=== PATIENT | female | born 1980 | race Caucasian/White ===

== ENCOUNTER 2017-08-29 18:19 | Emergency (ER) | payer OTHER, SELFPAY ==
[2017-08-29 19:08] VITALS: BP 128/80; PULSE 80; RESP 20; TEMP 36.9; O2SAT 100; BMI 32.8
--- NOTE | 2017-08-29 19:18 | ED.LOWEXIN ---
HPI - Extremity Injury (Lower) <JODIE Núñez - Last Filed: 08/29/17 22:05> General Chief Complaint: Extremity Injury, Lower Stated Complaint: left knee pain x2 days/fell Time Seen by Provider: 08/29/17 18:57 History of Present Illness HPI Narrative: 37-year-old female here for complaint of pain into her left knee. Patient states she had ground level fall yesterday when she slipped on the edge of a side walk causing her to land on her anterior left knee. She has a few abrasions to her lower extremities otherwise she states she has no other injuries. Increased pain with ambulation and weight-bearing to the left knee. No head injury no loss of consciousness. She states that her last tetanus was a long time ago probably over 10 years. Related Data Home Medications Medication Instructions Recorded Confirmed Multi Vitamin 08/29/17 Allergies Allergy/AdvReac Type Severity Reaction Status Date / Time amoxicillin AdvReac Diarrhea Verified 08/29/17 19:15 Review of Systems <JODIE Núñez Last Filed: 08/29/17 22:05> Constitutional Denies chills, Denies fever(s), Denies lethargy and Denies weakness Eyes Denies change in vision, Denies eye discharge, Denies irritation and Denies loss of vision ENT Ears, Nose, Mouth, and Throat: Denies change in voice, Denies neck pain and Denies sore throat Cardiovascular Denies chest pain, Denies irregular heart rhythm, Denies lightheadedness, Denies palpitations, Denies dyspnea, Denies dyspnea on exertion and Denies orthopnea Respiratory Denies cough, Denies dyspnea, Denies dyspnea on exertion and Denies wheezing Gastrointestinal Gastrointestinal: Denies abdominal pain, Denies change in bowel habits, Denies diarrhea, Denies nausea and Denies vomiting Genitourinary Denies hematuria, Denies flank pain, Denies urinary incontinence and Denies urinary urgency Musculoskeletal Denies neck pain Comments: Left knee pain Integumentary/Breasts Denies pruritus, Denies erythema, Denies rash and Denies wounds Neurologic Denies confusion, Denies loss of vision and Denies weakness Psychiatric Denies anxiety, Denies confusion, Denies depression, Denies homicidal ideation and Denies suicidal ideation Endocrine Denies palpitations Allergic/Immunologic Denies wheezing Exam <JODIE Núñez - Last Filed: 08/29/17 22:05> Initial Vital Signs Initial Vital Signs: Vital Signs Temperature 98.5 F 08/29/17 19:08 Pulse Rate 80 08/29/17 19:08 Respiratory Rate 20 08/29/17 19:08 Blood Pressure 128/80 H 08/29/17 19:08 Pulse Oximetry 100 08/29/17 19:08 Const General: cooperative and well developed Nutritional Appearance: well nourished Orientation: alert, awake and oriented x3 HENMT Mouth: oral mucosae normal, oropharynx normal and moist mucous membranes Eyes Conjunctivae: conjunctivae normal Sclera: sclerae normal Pupils: PERRL EOM: EOM intact bilaterally Resp Effort & Inspection: normal respiratory effort, able to speak in complete sentences, no respiratory distress and no use of accessory muscles Auscultation: clear to auscultation bilaterally, no rales, no rhonchi and no wheezes Cardio Pulses: normal peripheral pulses Skin General: no rashes or lesions noted, No jaundice and No petechiae Extrem Other: Right knee with slight ecchymosis slight swelling. No erythema. Distal sensation is intact. Distal pulses are intact. Full range of motion distally. Negative anterior-posterior drawer sign. Negative varus and valgus stress test <Santo Aponte DO - Last Filed: 08/30/17 02:48> Initial Vital Signs Initial Vital Signs: Vital Signs Temperature 98.5 F 08/29/17 19:08 Pulse Rate 80 08/29/17 19:08 Respiratory Rate 20 08/29/17 19:08 Blood Pressure 128/80 H 08/29/17 19:08 Pulse Oximetry 100 08/29/17 19:08 Course <JODIE Núñez - Last Filed: 08/29/17 22:05> Orders Ordered: ED Orders 08/29/17 19:23 XR knee LT 3V Stat Discontinued Medications Diphtheria/Tetanus/Acell Pertussis (Adacel) 0.5 ml IM .ONCE ONE Stop: 08/29/17 20:44 Last Admin: 08/29/17 20:55 Dose: 0.5 ml Ibuprofen (Advil) 800 mg PO NOW ONE Stop: 08/29/17 19:25 Last Admin: 08/29/17 19:37 Dose: 800 mg Vital Signs - 8 hr 08/29/17 19:08 Temperature 98.5 F Pulse Rate 80 Respiratory Rate 20 Blood Pressure 128/80 H Pulse Oximetry 100 <Santo Aponte DO - Last Filed: 08/30/17 02:48> Orders Ordered: ED Orders 08/29/17 19:23 XR knee LT 3V Stat Discontinued Medications Diphtheria/Tetanus/Acell Pertussis (Adacel) 0.5 ml IM .ONCE ONE Stop: 08/29/17 20:44 Last Admin: 08/29/17 20:55 Dose: 0.5 ml Ibuprofen (Advil) 800 mg PO NOW ONE Stop: 08/29/17 19:25 Last Admin: 08/29/17 19:37 Dose: 800 mg Vital Signs - 8 hr 08/29/17 19:08 Temperature 98.5 F Pulse Rate 80 Respiratory Rate 20 Blood Pressure 128/80 H Pulse Oximetry 100 MDM - Extremity Injury (Lower) <JODIE Núñez - Last Filed: 08/29/17 22:05> Imaging Data knee: Radiologist's impression: PROCEDURE: XR KNEE LT 3V INDICATIONS: Pain to left knee status post ground level fall TECHNIQUE: 3 views of the knee were acquired. COMPARISON: None. FINDINGS: Bones: No fractures or dislocations. There is minimal joint space narrowing in the medial compartment. No suspicious bony lesions. Soft tissues: There is a small joint effusion. No suspicious soft tissue calcifications. IMPRESSION: 1. No fracture or dislocation. 2. Small joint effusion. Dictated by: Jeremy Almaguer M.D. on 08/29/2017 at 20:12 Approved by: Jeremy Almaguer M.D. on 08/29/2017 at 20:14 [facility] Narrative Medical decision making narrative: X-ray the left knee was obtained and was negative for any acute findings. Signs and symptoms presents as knee sprain. She is placed in knee immobilizer and crutches for support and nonweightbearing. [id number] ibuprofen as needed for any discomfort. Follow up with primary care provider. For any worsening symptoms return to the emergency room. Ice and elevation help with swelling. Discharge Plan Departure Patient Disposition: Home, Self-Care Clinical Impression: Contusion of knee, left Discharge Date/Time: 08/29/17 21:20 Interventions: ED Discharge Assessment Last Done: 08/29/17 21:19 Instructions: DI for Knee Pain Activity Restrictions/Additional Instructions: X-ray of the right knee negative for any acute findings or fractures. Signs and symptoms presents as a contusion/sprain of the right knee. Use [id number] Tylenol and Motrin as needed for any discomfort. You have been placed in a knee immobilizer use as directed for comfort and support. Also use crutches as instructed to help with nonweightbearing. Follow up with her primary care provider later this week for re-evaluation. For any worsening symptoms return to the emergency room. May use ice and elevation to help with swelling. Prescriptions: No Action Multi Vitamin RF: 0 Referrals: Radha Ornelas DO [Primary Care Provider] - <Santo Aponte DO - Last Filed: 08/30/17 02:48> Cosign ED Attending Cossharronature Attestation: I was immediately available in the department for consultation. Documentation has been reviewed. I agree with assessment and plan.
--- NOTE | 2017-08-29 19:23 | DI.RAD.S_ITS ---
PROCEDURE: XR KNEE LT 3V INDICATIONS: Pain to left knee status post ground level fall TECHNIQUE: 3 views of the knee were acquired. COMPARISON: None. FINDINGS: Bones: No fractures or dislocations. There is minimal joint space narrowing in the medial compartment. No suspicious bony lesions. Soft tissues: There is a small joint effusion. No suspicious soft tissue calcifications. IMPRESSION: 1. No fracture or dislocation. 2. Small joint effusion. Dictated by: Jeremy Almaguer M.D. on 08/29/2017 at 20:12 Approved by: Jeremy Almaguer M.D. on 08/29/2017 at 20:14
--- NOTE | 2017-08-29 19:33 | PC.NURSE ---
Abrasions to both knees, dorsal aspect of left foot and toes - contusion to chin
[2017-08-29] MEDS: IBUPROFEN 400 MG TABLET 800 MG PO (19:37)
[2017-08-29] MEDS: TET,DIPH,PERTUSS(ACELL),VAC/PF 0.5 ML SYRINGE IM (20:55)
== END 2017-08-29 21:20 | disposition home or self-care (01) ==
PROVIDERS: Emergency Provider Nurse Practitioner Family; Family Provider Family Medicine; PCP Family Medicine
DX: S80.02XA Contusion of left knee, initial encounter (principal); W19.XXXA Unspecified fall, initial encounter
CPT/HCPCS: 73562; 90471; 99283; 90715

== ENCOUNTER 2019-04-13 17:24 | Emergency (ER) | payer OTHER, MEDICAID, SELFPAY ==
[2019-04-13 17:30] VITALS: BP 121/74; PULSE 91; RESP 18; TEMP 36.7; O2SAT 99; BMI 35.8
--- NOTE | 2019-04-13 18:27 | ED.GENADULT ---
HPI - General Adult General Chief complaint: Abdominal Pain Stated complaint: 2nd opinion, wants to check if . Time Seen by Provider: 04/13/19 17:31 Source: patient Mode of arrival: Family Vehicle Limitations: no limitations History of Present Illness HPI narrative: Patient is a 38-year-old female here for evaluation because she states that she is . She states that her last menstrual cycle was approximately 2 months ago. She states that last month she does tend some spotting. She states that she has had breast tenderness and bloating and fatigue and nausea. She went to an outside facility earlier today who stated that she was not after patient states she had both a urine and blood test performed. She states she thinks that they are wrong. She states that during her 1st she she was ?9 weeks? before she had any positive test. She states she did have a negative urine test at home. She is also currently being treated for a urinary tract infection Related Data Home Medications Medication Instructions Recorded Confirmed Multi Vitamin 08/29/17 Allergies Allergy/AdvReac Type Severity Reaction Status Date / Time amoxicillin AdvReac Diarrhea Verified 04/13/19 17:38 Review of Systems Constitutional Constitutional: Reports fatigue, Reports malaise and Reports weight gain Gastrointestinal Gastrointestinal: Reports bloating and Reports nausea Genitourinary Genitourinary: Denies dysuria and Denies vaginal discharge Musculoskeletal Musculoskeletal: Denies myalgias and Denies arthralgias Integumentary/Breasts Skin/Breast: Denies rash Neurologic Neurologic: Denies behavioral changes Psychiatric Psychiatric: Denies behavioral changes Endocrine Endocrine: Reports fatigue Hematologic/Lymphatic Hematologic/Lymphatic: Denies easy bleeding and Denies easy bruising Patient History Social History Smoking Status: Never smoker Smoking Status: Never smoker alcohol intake frequency: holidays/special occasions only Substance Use Type: marijuana Exam Initial Vital Signs Initial Vital Signs: Vital Signs Temperature 98.0 F 04/13/19 17:30 Pulse Rate 91 H 04/13/19 17:30 Respiratory Rate 18 04/13/19 17:30 Blood Pressure 121/74 04/13/19 17:30 Pulse Oximetry 99 04/13/19 17:30 Const General: cooperative, healthy appearing and comfortable Resp Effort & Inspection: normal respiratory effort Cardio Rate: regular rate GI Inspection: non-distended Skin Lesions: no lesions Rashes: no rashes Neuro General: alert, awake and oriented x3 Speech: speech normal Gait: normal gait Extrem General: normal to inspection Psych Appearance: grossly normal and well kempt Course Orders Ordered: ED Orders 04/13/19 18:44 HCG Quantitative Stat Vital Signs Vital signs: Vital Signs - 8 hr 04/13/19 17:30 04/13/19 19:46 Temperature 98.0 F Pulse Rate 91 H 78 Respiratory Rate 18 20 Blood Pressure 121/74 123/82 Pulse Oximetry 99 Medical Decision Making Lab Data Lab results reviewed: Yes I reviewed the patient's lab results. Labs: Lab Results 04/13/19 Range/Units 18:44 HCG, Quant < 2.39 mIU/mL Point of Care Testing Test Results Negative Urine Dip Bedside Urine Glucose 100 mg/dl Bedside Urine Bilirubin ++ 2 Bedside Urine Ketone - Negative Urine Specific [place] 1.010 Bedside Urine Occult Blood - Negative Bedside Urine pH 6.0 Bedside Urine Protein - Negative Bedside Urine Urobilinogen 2+ 4mg Bedside Urine Nitrite + Positive Bedside Urine Leukocytes ++ 125 Esterase Point of care testing: Point of Care Testing Test Results Negative Urine Dip Bedside Urine Glucose 100 mg/dl Bedside Urine Bilirubin ++ 2 Bedside Urine Ketone - Negative Urine Specific [place] 1.010 Bedside Urine Occult Blood - Negative Bedside Urine pH 6.0 Bedside Urine Protein - Negative Bedside Urine Urobilinogen 2+ 4mg Bedside Urine Nitrite + Positive Bedside Urine Leukocytes ++ 125 Esterase MDM Narrative Medical decision making narrative: Patient does have a nitrite positive urine however is currently being treated with antibiotics. Her urine test was negative. Her HCG quantitative was negative. I did pass this information on to her and told her that she was not . Told her to continue the antibiotics for her urinary tract infection. Patient again seems skeptical about our lab test. I did give her return precautions. She expressed understanding Discharge Plan Departure Patient Disposition: Home Clinical Impression: Feared condition not demonstrated Discharge Date/Time: 04/13/19 19:45 Activity Restrictions/Additional Instructions: Both your urine and your blood test today were negative. Recommend you contact your primary provider for follow-up. Return to the emergency department for any new or worsening symptoms Prescriptions: No Action Multi Vitamin RF: 0 Referrals: Radha Ornelas, DO [Primary Care Provider] -
[2019-04-13 19:20] LABS: HCG Quantitative /Beta subunit < 2.39 mIU/mL
[2019-04-13 19:46] VITALS: BP 123/82; PULSE 78; RESP 20
== END 2019-04-13 19:45 | disposition home or self-care (01) ==
PROVIDERS: Emergency Provider Emergency Medicine; PCP Family Medicine
DX: Z78.9 Other specified health status (principal); Z71.1 Person with feared health complaint in whom no diagnosis is made
CPT/HCPCS: 36415; 81003; 81025; 84702; 99282; 99283

== ENCOUNTER → 2019-04-17 13:47 | Outpatient (CLI) | payer OTHER, MEDICAID, SELFPAY | PROVIDERS: PCP Family Medicine; Visit Provider Obstetrics & Gynecology | DX: R32 Unspecified urinary incontinence (principal) | CPT/HCPCS: 87086 ==

== ENCOUNTER → 2019-11-12 08:13 | Outpatient (CLI) | payer OTHER, MEDICAID, SELFPAY ==
[2019-11-12 09:09] LABS: Alanine Aminotransferase 26 IU/L (<35); Albumin 3.7 g/dL (3.5-5.0); Albumin Globulin Ratio 1.1 (1.0-2.8); Alkaline Phosphatase 95 U/L (38-126); Aspartate Aminotransferase 24 IU/L (14-36); Bilirubin Total 0.5 mg/dL (0.2-1.3); Bilirubin Unconjugated 0.4 mg/dL (0.0-1.1); Globulin 3.5 g/dL (1.7-4.1); HEMOLYSIS < 15 (0-50); Total Protein 7.2 g/dL (6.3-8.2)
[2019-11-13 08:32] LABS: HBsAg Screen Negative (Negative); Hepatitis A Antibody IgM Negative (Negative); Hepatitis B Core Antibody IgM Negative (Negative); Hepatitis C Antibody <0.1 s/co ratio (0.0-0.9)
== END ==
PROVIDERS: PCP Nurse Practitioner; Referring Provider Nurse Practitioner; Visit Provider Nurse Practitioner
DX: R79.89 Other specified abnormal findings of blood chemistry (principal); R74.8 Abnormal levels of other serum enzymes
CPT/HCPCS: 36415; 80074; 80076

== ENCOUNTER → 2019-12-29 11:11 | Outpatient (CLI) | payer OTHER, MEDICAID, SELFPAY ==
[2019-12-31 09:10] LABS: COVID19 Sendout Not Detected (Not Detect)
== END ==
PROVIDERS: PCP Nurse Practitioner; Visit Provider Nurse Practitioner
DX: Z11.59 Encounter for screening for other viral diseases (principal)
CPT/HCPCS: 87635

== ENCOUNTER 2020-01-01 06:37 | Day surgery (SDC) | payer OTHER, MEDICAID, SELFPAY ==
[2019-12-27 15:11] VITALS: BMI 39.3
[2020-01-01] VITALS (9 sets, daily range): BP systolic 101–123; BP diastolic 58–83; PULSE 73–90; RESP 10–16; TEMP 35.8–37; O2SAT 92–97; BMI 39.3
--- NOTE | 2020-01-01 | PATH_ITS ---
[facility] Accession Number: [id number] . 01 Material submitted: . gallbladder - GALLBLADDER AND CONTENTS . 02 Diagnosis: Gallbladder and Contents, Cholecystectomy: Cholelithiasis with mild chronic cholecystitis. No evidence of neoplasm. MRV 01/04/2020 1019 Local . 02 Electronically signed: . Edmund Mitchell MD, PhD, Pathologist NPI- [id number] . 01 Gross description: . Received in formalin, labeled gallbladder and contents, and consists of a 7.0 x 4.0 x 3.0 cm previously disrupted gallbladder with a 0.2 cm in diameter cystic duct. The serosa is landers-pink and wrinkled. Opening reveals green viscous bile with multiple round to bosselated green-brown choleliths ranging from 0.1 to 1.5 cm and measuring 4.5 x 4.5 x 2.2 cm in aggregate. The mucosa is green and velvety with severe cholesterolosis, and the wall thickness measures 0.1 cm. Patient Transition Specialist sections are submitted, to include the en face cystic duct margin (blue), body and fundus in cassette A1. ([id number]) /V 01/02/2020 1102 Local . 02 Pathologist provided ICD-10: K80.60 . 02 CPT . 062998 Performed at: 01 [facility] [address] [facility], [place], [place] [id number] MD Jeremy Hayes MD Phone: [phone] Performed at: 02 [facility] [address] [place], [place] [id number] MD Nathaly Roach MD Phone: [phone]
[2020-01-01] MEDS: LACTATED RINGERS 1,000 ML 100 ML IV (07:08)
--- NOTE | 2020-01-01 07:36 | PM.PREOP ---
Pre-operative Note COVID-19 COVID-19 status: Negative Interval Note History & Physical reviewed/Exam performed by Physician: Yes Changes to H&P: No
[2020-01-01] MEDS: CLINDAMYCIN 900 MG/50 ML PIGGYBACK 50 MG IV (07:45)
--- NOTE | 2020-01-01 08:10 | SUR.OPER ---
Supine on padded OR bed, head on pillow, right arm secured on padded arm boards at <90 degrees abduction, left arm is tucked, legs uncrossed, safety belt at thigh, tape over blanket over lower legs.
[2020-01-01] MEDS: BUPIVACAINE 0.25% (PF) VIAL 30 ML INJ (08:21)
--- NOTE | 2020-01-01 09:16 | PM.OP.1 ---
Operative Date/Time/Diagnoses Date of procedure: 01/01/20 Time of procedure: 09:16 Pre-op diagnosis: Biliary colic Post-op diagnosis: same Procedure & Clinicians Procedure: Laparoscopic cholecystectomy Same procedure as scheduled: Yes Indications: 39-year-old woman with multiple episodes of biliary colic presents for elective laparoscopic cholecystectomy Surgeon: Jose Garcia Click Yes if Unassisted: Yes Anesthesia Type: General Operative Notes Findings: Chronic cholecystitis, thickened gallbladder Estimated Blood Loss (mL): 30 Procedure in detail: The patient was placed supine on the table and bilateral lower extremity compression devices were applied. Anesthesia was induced they were intubated with an endotracheal tube and received 2g of Ancef. A time-out was performed. They were prepped and draped in sterile fashion. An infraumbilical incision was made, the umbilical stalk was elevated and the fascia was sharply incised entering the abdomen atraumatically. A blunt tip 12mm balloon trocar was then inserted, pneumoperitoneum was established and inspection of the abdomen demonstrated no evidence of injury. They were placed head up and right side up and then a 11 mm port was placed high in the epigastrium and two 5mm in the right upper quadrant. There was significant adhesions of omentum to the gallbladder consistent with chronic cholecystitis that were sharply divided. The gallbladder was grasped by the fundus and retracted over the liver and retracted laterally by the infundibulum. Using electrocautery the lateral plane between the gallbladder and the liver was opened towards the fundus. The gallbladder was then retracted laterally and the medial plane was developed in the same manner. With the gallbladder mobilized the bottom of the cystic plate was visualized. The hepatocystic triangle was meticulosly skeletonized using hook electrocautery of all fat and fibrous tissue from both the front and the back. Only two structures were then clearly seen entering the gallbladder the cystic duct and the cystic artery. With the critical view of safety fully established the cystic duct was clipped twice proximally and once distally using the 10 mm Weck clip applied under direct visualization and then sharply divided. The cystic artery was divided in the same fashion. The gallbladder was removed from the liver bed using electro cautery. The liver bed was then inspected for hemostasis and this was achieved. The abdomen was irrigated with sterile saline and inspection was made that showed the clips in good position. The specimen was removed using Endo-Catch. The abdomen was desufflated. The umbilical fascia was closed with 0 Vicryl in a [id number] fashion under direct visualization. Skin incisions were irrigated and closed with 4-0 Monocryl. 30 ml of 0.25% bupivacaine was infiltrated into the subcutaneous tissue of the incisions. The wounds were sealed with Dermabond. Patient emerged from anesthesia was extubated and transferred to recovery in stable condition. The sponge and instrument count at the end of the operation was correct.
[2020-01-01] MEDS: OXYCODONE/ACETAMINOPHEN 5/325 TABLET 1 TAB PO (09:22)
[2020-01-01] MEDS: ONDANSETRON 4 MG/2 ML INJ IV (09:25)
== END 2020-01-01 11:22 | disposition home or self-care (01) ==
PROVIDERS: PCP Nurse Practitioner; Referring Provider Nurse Practitioner; Visit Provider Surgery
PROC: 0FT44ZZ Resection of Gallbladder, Percutaneous Endoscopic Approach (ICD-10-PCS; CPT 47562; principal; 2020-01-01 07:45)
DX: K80.10 Calculus of gallbladder with chronic cholecystitis without obstruction (principal); F17.210 Nicotine dependence, cigarettes, uncomplicated
CPT/HCPCS: 47562; J1100; J1885; J2250; J2405; J2704; J3010

== ENCOUNTER 2021-03-10 11:00 | Emergency (ER) | payer OTHER, MEDICAID, SELFPAY ==
[2021-03-10 11:31] VITALS: BP 120/71; PULSE 89; RESP 18; TEMP 36.5; O2SAT 100; BMI 38.7
[2021-03-10 12:30] VITALS: BP 140/80; PULSE 98; O2SAT 98
--- NOTE | 2021-03-10 14:24 | ED_ITS ---
HPI - URI/Sore Throat <Ada Vital PA-C - Last Filed: 03/10/21 14:31> General Chief Complaint: Upper Respiratory Symptoms Stated Complaint: Congestion, cough, SOB, diarrhea Time Seen by Provider: 03/10/21 12:09 Source: patient Mode of arrival: Ambulatory Limitations: no limitations History of Present Illness HPI Narrative: 40-year-old female with past medical history anxiety, depression, migraines presents to the ED with flu-like symptoms. Patient endorses 10 days of nasal congestion, cough, shortness of breath, nausea, vomiting, diarrhea. Patient denies chest pain, fever, chills, abdominal pain, dysuria, flank pain, lightheadedness, dizziness, syncope. Patient is fully vaccinated against COVID- 19. Related Data Home Medications Medication Instructions Recorded Confirmed Multi Vitamin 08/29/17 01/10/20 dextroamphetamine-amphetamine ER 20 mg PO DAILY 06/01/19 01/10/20 20 mg 24hr capsule,extend release (Adderall XR) Previous Rx's Medication Instructions Recorded ibuprofen 600 mg tablet 600 mg PO QID #60 tab 11/27/19 acetaminophen 325 mg capsule 650 mg PO QID PRN #60 cap 01/01/20 (Tylenol) oxycodone 5 mg tablet 5 mg PO Q6H PRN #30 tab 01/01/20 gabapentin 100 mg capsule 300 mg PO BEDTIME #90 cap 02/24/21 Allergies Allergy/AdvReac Type Severity Reaction Status Date / Time amoxicillin AdvReac Diarrhea Verified 03/10/21 11:31 Review of Systems <Ada Vital PA-C - Last Filed: 03/10/21 14:31> Review of Systems ROS Unobtainable: All systems reviewed & are unremarkable except as noted in HPI and below Constitutional Constitutional: Reports body ache(s), Denies chills, Reports fatigue, Denies fever(s), Denies frequent falls, Denies lethargy and Denies weakness Eyes Eyes: Denies change in vision, Denies eye discharge, Denies irritation and Denies loss of vision ENT Ears, Nose, Mouth, and Throat: Denies change in voice, Denies dizziness, Reports nasal congestion, Denies neck pain, Denies sore throat and Denies throat swelling Cardiovascular Cardiovascular: Denies chest pain, Denies irregular heart rhythm, Denies lightheadedness, Denies palpitations, Reports dyspnea, Denies dyspnea on exertion and Denies orthopnea Respiratory Respiratory: Denies cough, Reports dyspnea, Denies dyspnea on exertion and Denies wheezing Gastrointestinal Gastrointestinal: Denies abdominal pain, Denies change in bowel habits, Reports diarrhea, Reports nausea and Reports vomiting Genitourinary Genitourinary: Denies hematuria, Denies flank pain, Denies urinary incontinence and Denies urinary urgency Musculoskeletal Musculoskeletal: Denies back pain, Denies muscle weakness, Denies neck pain, Denies numbness and Denies tingling Integumentary/Breasts Skin/Breast: Denies pruritus, Denies erythema, Denies rash and Denies wounds Neurologic Neurologic: Denies behavioral changes, Denies confusion, Denies dizziness, Denies frequent falls, Denies loss of vision, Denies numbness, Denies tingling and Denies weakness Psychiatric Psychiatric: Denies anxiety, Denies behavioral changes, Denies confusion, Denies depression, Denies homicidal ideation and Denies suicidal ideation Endocrine Endocrine: Reports fatigue, Denies flushing and Denies palpitations Hematologic/Lymphatic Hematologic/Lymphatic: Denies easy bruising Allergic/Immunologic Allergic/Immunologic: Denies urticaria, Denies throat swelling and Denies wheezing Patient History <Ada Vital PA-C - Last Filed: 03/10/21 14:31> Medical History Abnormal Pap smear of cervix (~2017) ADHD (~1982) Allergies (~1988) Anxiety (~2002) Back pain at L4-L5 level (~2014) Chicken pox (~1984) Chronic hip pain, bilateral Chronic right hip pain Depression (~2002) Fall Fibroids (~2017) Forgetfulness Heavy menstrual period History of recurrent ear infection Left shoulder pain Migraines (~1993) Non-healing wound Not currently Painful menstrual periods Piriformis syndrome of both sides Right shoulder pain Sciatic leg pain Scoliosis (~1989) UTI (urinary tract infection) Surgical History Anesthesia Colon polyps (~2018) History of placement of ear tubes (~12/03/85) Family History Father Cancer Diabetes mellitus Hypertension Mother Hyperlipidemia Mental health problem History of bipolar disorder Thyroid disease Grandfather Lung cancer Liver cancer Grandmother Cancer History of heart disease Social History marital status: unmarried,living together household members: significant other and children occupational status: employed Smoking Status: Current some day smoker alcohol intake: never substance use type: does not use Smoking Status: Current some day smoker alcohol intake frequency: holidays/special occasions only Substance Use Type: marijuana Exam <Ada Vital PA-C - Last Filed: 03/10/21 14:31> Initial Vital Signs Initial Vital Signs: Vital Signs Temperature 97.7 F 03/10/21 11:31 Pulse Rate 89 03/10/21 11:31 Respiratory Rate 18 03/10/21 11:31 Blood Pressure 120/71 03/10/21 11:31 Pulse Oximetry 100 03/10/21 11:31 Const General: cooperative, healthy appearing and comfortable HENMT Head: normal to inspection Ears: hearing grossly normal bilaterally Nose: external nose normal and nasal mucous membranes and turbinates normal Face and sinus: normal facial exam Mouth: oral mucosae normal Eyes General: appearance normal, both eyes and all related structures Neck Neck: normal visual inspection Chest Chest: normal inspection of the chest Resp Effort & Inspection: normal respiratory effort Auscultation: clear to auscultation bilaterally Cardio Rate: regular rate Rhythm: regular rhythm GI Other: Abdomen is soft, nondistended, nontender to palpation. General: No CVA tenderness Skin General: no rashes or lesions noted Neuro General: patient alert, patient awake and patient oriented x3 <Bobbi Parks DO - Last Filed: 03/11/21 08:04> Initial Vital Signs Initial Vital Signs: Vital Signs Temperature 97.7 F 03/10/21 11:31 Pulse Rate 89 03/10/21 11:31 Respiratory Rate 18 03/10/21 11:31 Blood Pressure 120/71 03/10/21 11:31 Pulse Oximetry 100 03/10/21 11:31 Course <Ada Vital PA-C - Last Filed: 03/10/21 14:31> Orders Ordered: ED Orders 03/10/21 11:25 Respiratory Panel (Film Array) Stat Vital Signs Vital signs: Vital Signs - 8 hr 03/10/21 11:31 03/10/21 12:30 Temperature 97.7 F Pulse Rate 89 98 H Respiratory Rate 18 Blood Pressure 120/71 140/80 Pulse Oximetry 100 98 <Bobbi Parks DO - Last Filed: 03/11/21 08:04> Orders Ordered: ED Orders 03/10/21 11:25 Respiratory Panel (Film Array) Stat Vital Signs Vital signs: Vital Signs - 8 hr 03/10/21 11:31 03/10/21 12:30 Temperature 97.7 F Pulse Rate 89 98 H Respiratory Rate 18 Blood Pressure 120/71 140/80 Pulse Oximetry 100 98 MDM - URI/Sore Throat <Ada Vital PA-C - Last Filed: 03/10/21 14:31> Lab Data Attestation: I reviewed the patient's lab results. Lab results narrative: Respiratory panel negative. Labs: Lab Results 03/10/21 Range/Units 11:25 Chlamy pneumoniae PCR Not detected (Not Detect) Adenovirus (PCR) Not detected (Not Detect) B. pertussis DNA (PCR) Not detected (Not Detecte) B.parapertussis DNA PCR Not detected (Not Detecte) Coronavirus OC43 (PCR) Not detected (Not Detect) Coronavirus HKU1 (PCR) Not detected (Not Detect) Coronavirus 229E (PCR) Not detected (Not Detect) SARS-CoV-2 (PCR) Not detected (Not Detecte) Coronavirus NL63 (PCR) Not detected (Not Detect) Human Metapneumovir PCR Not detected (Not Detect) Influenza Type A (PCR) Not detected (Not Detect) Influenza Type B (PCR) Not detected (Not Detect) M. pneumoniae (PCR) Not detected (Not Detect) Parainfluenza 1 (PCR) Not detected (Not Detect) Parainfluenza 2 (PCR) Not detected (Not Detect) Parainfluenza 3 (PCR) Not detected (Not Detect) Parainfluenza 4 (PCR) Not detected (Not Detect) RSV (PCR) Not detected (Not Detect) Entero/Rhino (PCR) Not detected (Not Detect) MDM Narrative Medical decision making narrative: 40-year-old female with past medical history anxiety, depression, migraines presents to the ED with flu-like symptoms. Concern for COVID-19 infection versus other viral syndrome. Given reassuring physical exam, lungs clear to auscultation bilaterally, no systemic signs or symptoms, unlikely pneumonia. Patient is PERC negative, unlikely PE. Respiratory viral panel negative. Discussed ED precautions with patient. Patient verbalized understanding. Discharged patient home with supportive care. <Bobbi Parks, - Last Filed: 03/11/21 08:04> Lab Data Labs: Lab Results 03/10/21 Range/Units 11:25 Chlamy pneumoniae PCR Not detected (Not Detect) Adenovirus (PCR) Not detected (Not Detect) B. pertussis DNA (PCR) Not detected (Not Detecte) B.parapertussis DNA PCR Not detected (Not Detecte) Coronavirus OC43 (PCR) Not detected (Not Detect) Coronavirus HKU1 (PCR) Not detected (Not Detect) Coronavirus 229E (PCR) Not detected (Not Detect) SARS-CoV-2 (PCR) Not detected (Not Detecte) Coronavirus NL63 (PCR) Not detected (Not Detect) Human Metapneumovir PCR Not detected (Not Detect) Influenza Type A (PCR) Not detected (Not Detect) Influenza Type B (PCR) Not detected (Not Detect) M. pneumoniae (PCR) Not detected (Not Detect) Parainfluenza 1 (PCR) Not detected (Not Detect) Parainfluenza 2 (PCR) Not detected (Not Detect) Parainfluenza 3 (PCR) Not detected (Not Detect) Parainfluenza 4 (PCR) Not detected (Not Detect) RSV (PCR) Not detected (Not Detect) Entero/Rhino (PCR) Not detected (Not Detect) Discharge Plan Departure Patient Disposition: Home Clinical Impression: URI (upper respiratory infection) Instructions: DI for Viral Upper Respiratory Infection -- Adult Activity Restrictions/Additional Instructions: You were evaluated in the ED today for shortness of breath, cough and congestion. Your respiratory panel was normal. You were negative for COVID-19 and the flu. Your symptoms are likely due to a common cold virus. You may take Tylenol for your symptoms. Continue to stay hydrated and rest. Return to the ED if your symptoms worsen including worsening shortness of breath, fever, chills. Prescriptions: No Action gabapentin 100 mg capsule 300 mg PO BEDTIME Qty: 90 0RF Rx Instructions: Take 300mg at bedtime daily for insomnia dextroamphetamine-amphetamine [Adderall XR] 20 mg capsule,extended release 24hr 20 mg PO DAILY 0RF ibuprofen 600 mg tablet 600 mg PO QID Qty: 60 2RF Rx Instructions: Take 1 tab by mouth up to 4x/day as needed for pain Multi Vitamin 0RF oxycodone 5 mg tablet 5 mg PO Q6H PRN (Reason: pain) Qty: 30 0RF acetaminophen [Tylenol] 325 mg capsule 650 mg PO QID PRN (Reason: pain) Qty: 60 0RF Referrals: Nida Hollingsworth ARNP [Primary Care Provider] - Stand Alone Forms: Work Release Note <Bobbi Parks DO - Last Filed: 03/11/21 08:04> Cosign ED Attending Albaature Attestation: I was immediately available in the department for consultation. Documentation has been reviewed.
== END 2021-03-10 13:05 | disposition home or self-care (01) ==
PROVIDERS: Emergency Provider Student in an Organized Health Care Education/Training Program; PCP Nurse Practitioner
DX: J06.9 Acute upper respiratory infection, unspecified (principal); F17.200 Nicotine dependence, unspecified, uncomplicated
CPT/HCPCS: 87633; 99282

== ENCOUNTER 2021-03-22 08:20 | Emergency (ER) | payer OTHER, MEDICAID, SELFPAY ==
--- NOTE | 2021-03-22 08:40 | ED.GENADULT ---
HPI - General Adult General Chief complaint: Urogenital-Female Stated complaint: Possible miscarriage Time Seen by Provider: 03/22/21 08:25 Source: patient Mode of arrival: Ambulatory Limitations: no limitations History of Present Illness HPI narrative: Patient is a 40-year-old female here for evaluation of multiple symptoms to include the concern for a possible ectopic versus a miscarriage. Patient states that she was looking on the Internet she has many of the same symptoms associated with an ectopic . She is having some shoulder discomfort. Having some lower abdominal discomfort. No vaginal discharge. No bleeding. No fevers. She does have a history of fibroids and PCOS. She is having pain with intercourse and she also has sweet smelling feces. Symptoms been going on for the past couple months. She states in the past she did have a positive test until several weeks and her . She was seen days ago at an outside facility for similar symptoms. She states that she had a test and they told her that she was negative issue is questioning this test. Related Data Home Medications Medication Instructions Recorded Confirmed Multi Vitamin 08/29/17 01/10/20 dextroamphetamine-amphetamine ER 20 mg PO DAILY 06/01/19 01/10/20 20 mg 24hr capsule,extend release (Adderall XR) Previous Rx's Medication Instructions Recorded ibuprofen 600 mg tablet 600 mg PO QID #60 tab 11/27/19 acetaminophen 325 mg capsule 650 mg PO QID PRN #60 cap 01/01/20 (Tylenol) oxycodone 5 mg tablet 5 mg PO Q6H PRN #30 tab 01/01/20 gabapentin 100 mg capsule 300 mg PO BEDTIME #90 cap 02/24/21 Allergies Allergy/AdvReac Type Severity Reaction Status Date / Time amoxicillin AdvReac Diarrhea Verified 03/22/21 08:36 Review of Systems Constitutional Constitutional: Denies fever(s) Cardiovascular Cardiovascular: Denies chest pain and Denies dyspnea Respiratory Respiratory: Denies dyspnea Gastrointestinal Gastrointestinal: Reports as per HPI and Reports system reviewed and no additional complaints, except as documented Genitourinary Genitourinary: Reports system reviewed and no additional complaints, except as documented and Reports as per HPI Musculoskeletal Musculoskeletal: Reports system reviewed and no additional complaints, except as documented and Reports as per HPI Hematologic/Lymphatic On Anticoagulants: No Patient History Medical History (Updated 03/22/21 @ 10:22 by Se Bravo DO) Abnormal Pap smear of cervix (~2017) ADHD (~1982) Allergies (~1988) Anxiety (~2002) Back pain at L4-L5 level (~2014) Chicken pox (~1984) Chronic hip pain, bilateral Chronic right hip pain Depression (~2002) Fall Fibroids (~2017) Forgetfulness Heavy menstrual period History of recurrent ear infection Left shoulder pain Migraines (~1993) Non-healing wound Not currently Painful menstrual periods Piriformis syndrome of both sides Right shoulder pain Sciatic leg pain Scoliosis (~1989) UTI (urinary tract infection) Surgical History Anesthesia Colon polyps (~2018) History of placement of ear tubes (~12/03/85) Family History Father Cancer Diabetes mellitus Hypertension Mother Hyperlipidemia Mental health problem History of bipolar disorder Thyroid disease Grandfather Lung cancer Liver cancer Grandmother Cancer History of heart disease Social History marital status: unmarried,living together household members: significant other and children occupational status: employed Smoking Status: Current some day smoker alcohol intake: never substance use type: does not use Smoking Status: Current some day smoker alcohol intake frequency: holidays/special occasions only Substance Use Type: marijuana Exam Initial Vital Signs Initial Vital Signs: Vital Signs Temperature 97.1 F L 03/22/21 08:41 Pulse Rate 92 H 03/22/21 08:41 Respiratory Rate 16 03/22/21 08:41 Blood Pressure 116/68 03/22/21 08:41 Pulse Oximetry 99 03/22/21 08:41 Const General: cooperative, well developed and well groomed Limitations: mental status not altered HENWV Head: normal to inspection and normocephalic Resp Effort & Inspection: normal respiratory effort Cardio Rate: regular rate GI Inspection: non-distended Palpation: soft, No firm and tender (Lower abdomen) Skin General: no rashes or lesions noted Neuro General: patient alert, patient awake and moves all extremities Extrem General: capillary refill normal Psych Appearance: grossly normal and well kempt Course Orders Ordered: ED Orders 03/22/21 08:40 ABO RH Type Stat Basic Metabolic Panel Stat Complete Blood Count AUTO DIFF Stat HCG Quantitative /Beta subunit Stat Vital Signs Vital signs: Vital Signs - 8 hr 03/22/21 08:41 Temperature 97.1 F L Pulse Rate 92 H Respiratory Rate 16 Blood Pressure 116/68 Pulse Oximetry 99 Medical Decision Making Lab Data Result diagrams: 03/22/21 09:05 03/22/21 09:05 Labs: Lab Results 03/22/21 03/22/21 Range/Units 09:05 09:05 WBC 7.4 (4.5-11.0) X10^3/uL RBC 4.70 (4.0-5.2) X10^6/uL Hgb 12.8 (12.0-16.0) g/dL Hct 38.0 (36-46) % MCV 80.7 (80-100) fL MCH 27.1 (26-34) PG MCHC 33.6 (30-36) % RDW 15.5 H (11.6-14.8) % Plt Count 302 (150-400) X10^3/uL Neut % (Auto) 63.9 (50-75) % Lymph % (Auto) 25.6 (25-40) % [place] % (Auto) 6.4 (3-14) % Eos % (Auto) 3.6 (2-4) % Baso % (Auto) 0.5 (0-2) % Neut # (Auto) 4700 (3738-2705) /uL Lymph # (Auto) 1900 (8378-6160) /uL [place] # (Auto) 500 (0-900) /uL Eos # (Auto) 300 (0-450) /uL Baso # (Auto) 0 (0-100) /uL Sodium 139 (137-145) mmol/L Potassium 4.4 (3.4-5.1) mmol/L Chloride 105 (98-107) mmol/L Carbon Dioxide 27 (22-32) mmol/L BUN 13 (7-17) mg/dL Creatinine 0.81 (0.52-1.04) mg/dL Estimated GFR > 60.0 (>60) mL/min BUN/Creatinine Ratio 16.0 (6-22) Glucose 101 H (70-100) mg/dL Calcium 9.3 (8.4-10.2) mg/dL HCG, Quant < 2.4 mIU/mL Point of Care Testing Test Results Negative Urine Dip Bedside Urine Glucose Negative Bedside Urine Bilirubin - Negative Bedside Urine Ketone - Negative Urine Specific [place] 1.020 Bedside Urine Occult Blood + Bedside Urine pH 6.0 Bedside Urine Protein - Negative Bedside Urine Urobilinogen - Negative Bedside Urine Nitrite - Negative Bedside Urine Leukocytes - Negative Esterase Point of care testing: Point of Care Testing Test Results Negative Urine Dip Bedside Urine Glucose Negative Bedside Urine Bilirubin - Negative Bedside Urine Ketone - Negative Urine Specific [place] 1.020 Bedside Urine Occult Blood + Bedside Urine pH 6.0 Bedside Urine Protein - Negative Bedside Urine Urobilinogen - Negative Bedside Urine Nitrite - Negative Bedside Urine Leukocytes - Negative Esterase MDM Narrative Medical decision making narrative: Patient has had symptoms for the past couple months. Her hCG level today is negative. She does have a history of PCOS and fibroids. Her labs are unremarkable. She has seen archery instructor in the past. Informed her that she does need to follow-up with archery instructor again to discuss further workup. I feel that we can hold on radiologic studies for now. She can take Tylenol/ibuprofen for discomfort. She was given return precautions. She expressed understanding and agreement. Discharge Plan Departure Patient Disposition: Home Clinical Impression: Abdominal pain Instructions: DI for Abdominal Pain-Adult Activity Restrictions/Additional Instructions: I do recommend that you follow-up with your primary doctor and also the archery instructor providers. You can contact the archery instructor provider that you have seen in the past. You can also contact the [facility] at [phone]. Return to the emergency department for any new symptoms Prescriptions: No Action gabapentin 100 mg capsule 300 mg PO BEDTIME Qty: 90 0RF Rx Instructions: Take 300mg at bedtime daily for insomnia dextroamphetamine-amphetamine [Adderall XR] 20 mg capsule,extended release 24hr 20 mg PO DAILY 0RF ibuprofen 600 mg tablet 600 mg PO QID Qty: 60 2RF Rx Instructions: Take 1 tab by mouth up to 4x/day as needed for pain Multi Vitamin 0RF oxycodone 5 mg tablet 5 mg PO Q6H PRN (Reason: pain) Qty: 30 0RF acetaminophen [Tylenol] 325 mg capsule 650 mg PO QID PRN (Reason: pain) Qty: 60 0RF Referrals: Nida Hollingsworth ARNP [Primary Care Provider] -
[2021-03-22 08:41] VITALS: BP 116/68; PULSE 92; RESP 16; TEMP 36.2; O2SAT 99; BMI 37.9
[2021-03-22 09:24] LABS: Add Manual Diff / Slide Review NO; Basophils Absolute Auto 0 /uL (0-100); Basophils Percent Auto 0.5 % (0-2); Eosinophils Absolute Auto 300 /uL (0-450); Eosinophils Percent Auto 3.6 % (2-4); Hemoglobin 12.8 g/dL (12.0-16.0); Lymphocytes Absolute Auto 1900 /uL (1100-4500); Lymphocytes Percent Auto 25.6 % (25-40); Mean Corpuscular HGB Conc 33.6 % (30-36); Mean Corpuscular Hemoglobin 27.1 PG (26-34); Mean Corpuscular Volume 80.7 fL (80-100); Monocytes Absolute Auto 500 /uL (0-900); Monocytes Percent Auto 6.4 % (3-14); Neutrophils Absolute Auto 4700 /uL (1500-7000); Neutrophils Percent Auto 63.9 % (50-75); Platelet Count 302 X10^3/uL (150-400); Red Cell Distribution Width 15.5 % (11.6-14.8); White Blood Cell Count 7.4 X10^3/uL (4.5-11.0)
[2021-03-22 09:35] LABS: Blood Urea Nitrogen 13 mg/dL (7-17); Calcium 9.3 mg/dL (8.4-10.2); Carbon Dioxide 27 mmol/L (22-32); Chloride 105 mmol/L (98-107); Estimated Glomerular Filt Rate > 60.0 mL/min (>60); Glucose 101 mg/dL (70-100); HEMOLYSIS < 15 (0-50); Potassium 4.4 mmol/L (3.4-5.1); Sodium 139 mmol/L (137-145)
[2021-03-22 09:52] LABS: HCG Quantitative /Beta subunit < 2.4 mIU/mL
[2021-03-22 10:45] VITALS: BP 133/61; PULSE 94; RESP 20; O2SAT 100
== END 2021-03-22 10:45 | disposition home or self-care (01) ==
PROVIDERS: Emergency Provider Emergency Medicine; PCP Nurse Practitioner
DX: R10.9 Unspecified abdominal pain (principal)
CPT/HCPCS: 36415; 80048; 81003; 81025; 84702; 85025; 86900; 86901; 99282

== ENCOUNTER → 2021-09-14 07:37 | Outpatient (CLI) | payer OTHER, MEDICAID, SELFPAY ==
--- NOTE | 2021-09-14 07:39 | DI.US.S_ITS ---
PROCEDURE: US THYROID INDICATIONS: Thyroidectomy. Thyroid nodules. TECHNIQUE: Real-time scanning was performed of the thyroid gland, with image documentation. COMPARISON: [facility], US, US THYROID, 09/14/2021, 10:23. FINDINGS: Right: Surgically absent. Left: Thyroid lobe measures 6.0 x 1.4 x 1.5 cm, and is homogenous in echotexture. Isthmus: Not seen and possibly absent. Nodule number: 1 Location: Left inferior Size: 1.2 x 0.5 x 1.1 cm. Composition: Solid Echogenicity: Isoechoic Shape: wider than tall. Margins: Smooth Echogenic foci: Macrocalcifications Total points: 4 ACR TI-RADS category: Moderately suspicious Nodule number: 2 Location: Left mid Size: 0.8 x 0.4 x 0.6 cm. Composition: Solid Echogenicity: Isoechoic Shape: wider than tall. Margins: Smooth Echogenic foci: None Total points: 3 ACR TI-RADS category: Mildly suspicious IMPRESSION: Thyroid nodules. Based on size, imaging characteristics and criteria outlined below no additional follow-up is recommended. Status post right thyroidectomy. ACR TI-RADS definitions and recommendations: TI-RADS 1 (benign): 0 points. FNA not needed. TI-RADS 2 (not suspicious): 2 points. FNA not needed. TI-RADS 3 (mildly suspicious): 3 points. * FNA if 2.5 cm or larger, follow up if 1.5 cm or larger (at 1, 3, and 5 years). TI-RADS 4 (moderately suspicious): 4-6 points. * FNA if 1.5 cm or larger, follow up if 1 cm or larger (at 1, 2, 3, and 5 years). TI-RADS 5 (highly suspicious): 7 points or more. * FNA if 1 cm or larger, follow up if 0.5 cm or larger (every year for 5 years). Dictated by: Ana Cortez MD, PhD on 09/16/2021 at 17:02 Approved by: Ana Cortez MD, PhD on 09/16/2021 at 17:06
== END ==
PROVIDERS: PCP Nurse Practitioner; Referring Provider Nurse Practitioner; Visit Provider Nurse Practitioner
DX: R13.10 Dysphagia, unspecified (principal); E04.2 Nontoxic multinodular goiter
CPT/HCPCS: 76536

== ENCOUNTER → 2022-02-02 12:23 | Outpatient (CLI) | payer OTHER, MEDICAID, SELFPAY ==
[2022-02-02 13:12] LABS: Pregnancy Test Serum,Qual Negative (Negative)
== END ==
PROVIDERS: PCP Nurse Practitioner; Referring Provider Nurse Practitioner; Visit Provider Nurse Practitioner
DX: N91.2 Amenorrhea, unspecified (principal)
CPT/HCPCS: 36415; 81025; 84703

== ENCOUNTER 2022-06-04 14:24 | Emergency (ER) | payer OTHER, MEDICAID, SELFPAY ==
[2022-06-04 15:12] VITALS: BP 147/94; PULSE 84; RESP 16; TEMP 36.5; O2SAT 97
[2022-06-04 15:39] LABS: Pregnancy Test Urine Negative (Negative)
[2022-06-04 15:47] LABS: Add Manual Diff / Slide Review NO; Basophils Absolute Auto 100 /uL (0-100); Basophils Percent Auto 1.3 % (0-2); Eosinophils Absolute Auto 200 /uL (0-450); Eosinophils Percent Auto 2.9 % (2-4); Hematocrit 39.1 % (36-46); Hemoglobin 13.2 g/dL (12.0-16.0); Lymphocytes Absolute Auto 2800 /uL (1100-4500); Lymphocytes Percent Auto 34.5 % (25-40); Mean Corpuscular HGB Conc 33.7 % (30-36); Mean Corpuscular Hemoglobin 27.6 PG (26-34); Mean Corpuscular Volume 82.1 fL (80-100); Monocytes Absolute Auto 500 /uL (0-900); Neutrophils Absolute Auto 4500 /uL (1500-7000); Neutrophils Percent Auto 55.3 % (50-75); Platelet Count 250 X10^3/uL (150-400); Red Blood Cell Count 4.76 X10^6/uL (4.0-5.2); Red Cell Distribution Width 15.8 % (11.6-14.8); White Blood Cell Count 8.1 X10^3/uL (4.5-11.0)
[2022-06-04 16:02] LABS: COVID19 -Nasal RAPID Negative (Negative)
[2022-06-04 16:03] LABS: Acetaminophen < 10 ug/mL (10-30); Alanine Aminotransferase 23 IU/L (<35); Albumin 4.3 g/dL (3.5-5.0); Albumin Globulin Ratio 1.2 (1.0-2.8); Alkaline Phosphatase 89 U/L (38-126); Appearance Urine UA CLEAR; Aspartate Aminotransferase 22 IU/L (14-36); BUN Creatinine Ratio 16.1 (6-22); Bilirubin Total 0.4 mg/dL (0.2-1.3); Bilirubin Urine UA NEGATIVE (NEGATIVE); Blood Urea Nitrogen 9 mg/dL (7-17); Calcium 8.8 mg/dL (8.4-10.2); Carbon Dioxide 24 mmol/L (22-32); Chloride 109 mmol/L (98-107); Color Urine UA YELLOW; Estimated Glomerular Filt Rate > 60 mL/min (>60); Ethanol (ETOH) < 10 mg/dL; Globulin 3.5 g/dL (1.7-4.1); Glucose 94 mg/dL (70-100); Glucose Urine UA NEGATIVE (Negative); HEMOLYSIS < 15 (0-50); Ketones Urine UA NEGATIVE (NEGATIVE); Leukocyte Esterase Urine UA NEGATIVE (NEGATIVE); Nitrite Urine UA NEGATIVE (Negative); Occult Blood Urine UA TRACE-INTACT (Negative); Potassium 3.4 mmol/L (3.4-5.1); Protein Urine UA NEGATIVE (Negative); Salicylate < 1.0 mg/dL (<20); Sodium 141 mmol/L (137-145); Total Protein 7.8 g/dL (6.3-8.2); Urobilinogen Urine UA 0.2 E.U./dL (0.2)
[2022-06-04 16:19] LABS: Free T4, Direct Thyroxine 1.32 ng/dL (0.78-2.19)
[2022-06-04 16:21] LABS: Amorphous Sediment Urine 2+; Bacteria Urine Occasional (0-1); RBC Urine 1-5/HPF (0-5/HPF); WBC Urine None Seen (0-5/HPF)
[2022-06-04 16:22] LABS: Culture Indicated Urine Specimen Cultured
[2022-06-04 16:31] LABS: UR Morphine/Opiate cutoff 300 Negative (Negative); Ur Creatinine Normal (Normal); Ur Specific Gravity Normal (Normal); Urine Amphetamines Positive (Negative); Urine Barbiturates Positive (Negative); Urine Benzodiazepines Negative (Negative); Urine Cocaine Negative (Negative); Urine MDMA Negative (Negative); Urine Methadone Negative (Negative); Urine Methamphetamines Negative (Negative); Urine Oxycodone Negative (Negative); Urine Phencyclidine Negative (Negative); Urine Tetrahydrocannabinol Positive (Negative); Urine Tricyclic Antidepressant Negative (Negative); Urine pH Normal (Normal)
--- NOTE | 2022-06-04 17:14 | ED_ITS ---
HPI - Psych <JODIE Reno - Last Filed: 06/04/22 19:59> General Chief Complaint: Psychiatric Symptoms Stated Complaint: mental health want to kill herself Time Seen by Provider: 06/04/22 17:14 History of Present Illness HPI Narrative: 41-year-old female, daily smoker with history of depression and fibromyalgia, was brought to the emergency department by family friends after admitting to suicidal ideation. Patient denies any homicidal ideation. Patient has significant life stressors and had a plan to kill herself by taking all of her pills that include Adderall, Fioricet, gabapentin, diclofenac and Cymbalta. Patient called 911 and was instructed to come to the emergency department. Patient is agreeable to inpatient treatment. Related Data Home Medications Medication Instructions Recorded Confirmed Multi Vitamin 08/29/17 05/26/22 Previous Rx's Medication Instructions Recorded gabapentin 300 mg capsule 300 mg PO TID #450 caps 11/19/21 acetaminophen 325 mg capsule 650 mg PO QID PRN pain #60 caps 12/23/21 (Tylenol) diclofenac sodium 75 mg 75 mg PO BID PRN pain #60 tabs 03/23/22 tablet,delayed release duloxetine 60 mg capsule,delayed 60 mg PO DAILY #90 caps 05/11/22 release [id number] See Rx Instructions PO .COMPLEX 05/26/22 50 mg-325 mg-40 mg tablet PRN pain #60 tabs dextroamphetamine-amphetamine ER 30 mg PO QAM #30 caps 05/26/22 30 mg 24hr capsule,extend release Allergies Allergy/AdvReac Type Severity Reaction Status Date / Time amoxicillin AdvReac Diarrhea Verified 02/02/22 10:58 Effexor AdvReac Mild Skin Uncoded 02/02/22 12:15 changes of breasts Review of Systems <JODIE Reno - Last Filed: 06/04/22 19:59> Review of Systems Narrative: Narrative: See HPI. GENERAL: Denies chills, fatigue, fever, sweats. HEENT: Denies sinus pain, ear pain, sore throat, difficulty swallowing, dizziness. RESPIRATORY: Denies dyspnea, cough, wheezing, sputum. CARDIOVASCULAR: Denies chest pain, palpitations, edema. GASTROINTESTINAL: Denies nausea, vomiting, abdominal pain, diarrhea, constipation. : Denies dysuria, frequency, incontinence, hematuria, urinary retention, flank pain. MSK: Denies weakness, joint pain, or bony pain. SKIN: Denies rash, skin lesions, or pruritis. NEUROLOGIC: Denies weakness, dizziness, headache, numbness, confusion. PSYCHIATRIC: Endorses anxiety. Patient History <JODIE Reno - Last Filed: 06/04/22 19:59> Medical History Abnormal Pap smear of cervix (~2017) ADHD (~1982) Allergies (~1988) Anxiety (~2002) Back pain at L4-L5 level (~2014) Biliary colic Chicken pox (~1984) Chronic hip pain, bilateral Chronic right hip pain Depression (~2002) Fall Fibroids (~2017) Fibromyalgia Forgetfulness Heavy menstrual period History of recurrent ear infection Left shoulder pain Migraines (~1993) Non-healing wound Not currently Painful menstrual periods Piriformis syndrome of both sides Right shoulder pain Sciatic leg pain Scoliosis (~1989) UTI (urinary tract infection) Vaginal delivery Surgical History Anesthesia Colon polyps (~2018) History of placement of ear tubes (~12/03/85) Family History Father Cancer Diabetes mellitus Hypertension Mother Hyperlipidemia Mental health problem History of bipolar disorder Thyroid disease Grandfather Lung cancer Liver cancer Grandmother Cancer History of heart disease Social History marital status: unmarried,living together household members: significant other and children occupational status: employed Smoking Status: Current some day smoker alcohol intake: never substance use type: does not use Smoking Status: Current some day smoker alcohol intake frequency: holidays/special occasions only Substance Use Type: marijuana Exam <JODIE Reno - Last Filed: 06/04/22 19:59> Narrative Exam Narrative: Exam Narrative: GENERAL: This is a well-nourished, well-developed patient, in no acute distress. HEAD: Atraumatic. Normocephalic. EYES: Pupils equal round and reactive. Extraocular motions intact. No scleral icterus, injection or drainage. ENT: Nose without bleeding, purulent drainage. Throat without erythema, tonsillar hypertrophy or exudate. Uvula midline. Airway patent. TMs and canals clear. No sinus tenderness. NECK: Trachea midline. No JVD or lymphadenopathy. Nontender. CARDIOVASCULAR: Regular rate and rhythm without murmurs, peripheral pulses intact, cap refill <2 sec. RESPIRATORY: Breath sounds equal and clear bilaterally. No wheezes, rales, or rhonchi. No cough. No increased respiratory effort. No accessory muscle use. GASTROINTESTINAL: Abdomen soft, non-tender, nondistended without guarding or rebound. No suprapubic pain. MSK: Moves all extremities. Normal range of motion, no clubbing or edema. Neurovascularly intact. NEURO: A&O x 3. SKIN: Warm, dry, no rashes or lesions noted. Initial Vital Signs Initial Vital Signs: Vital Signs Temperature 97.7 F 06/04/22 15:12 Pulse Rate 84 06/04/22 15:12 Respiratory Rate 16 06/04/22 15:12 Blood Pressure 147/94 H 06/04/22 15:12 Pulse Oximetry 97 06/04/22 15:12 Oxygen Delivery Method Room Air 06/04/22 15:12 Reviewed <Karo Malone DO - Last Filed: 06/05/22 13:19> Initial Vital Signs Initial Vital Signs: Vital Signs Temperature 97.7 F 06/04/22 15:12 Pulse Rate 84 06/04/22 15:12 Respiratory Rate 16 06/04/22 15:12 Blood Pressure 147/94 H 06/04/22 15:12 Pulse Oximetry 97 06/04/22 15:12 Oxygen Delivery Method Room Air 06/04/22 15:12 Course <JODIE Reno - Last Filed: 06/04/22 19:59> Orders Ordered: Discontinued Medications Acetaminophen/Butalbital/Caffeine (Butalb/Apap/Caffeine 50/325/40 Tablet) 2 each PO NOW ONE Stop: 06/04/22 18:34 Last Admin: 06/04/22 19:08 Dose: 2 each Documented By: PAMELA Gabapentin (Gabapentin 300 Mg Capsule) 300 mg PO NOW ONE Stop: 06/04/22 19:05 Last Admin: 06/04/22 19:10 Dose: 300 mg Documented By: PAMELA Gabapentin (Gabapentin 300 Mg Capsule) 300 mg PO NOW ONE Stop: 06/04/22 19:05 Last Admin: 06/04/22 19:10 Dose: Not Given Documented By: PAMELA Vital Signs Vital signs: Vital Signs - 8 hr 06/04/22 15:12 Temperature 97.7 F Pulse Rate 84 Respiratory Rate 16 Blood Pressure 147/94 H Pulse Oximetry 97 Oxygen Delivery Method Room Air <Karo Malone DO - Last Filed: 06/05/22 13:19> Orders Ordered: Discontinued Medications Acetaminophen/Butalbital/Caffeine (Butalb/Apap/Caffeine 50/325/40 Tablet) 2 each PO NOW ONE Stop: 06/04/22 18:34 Last Admin: 06/04/22 19:08 Dose: 2 each Documented By: PAMELA Gabapentin (Gabapentin 300 Mg Capsule) 300 mg PO NOW ONE Stop: 06/04/22 19:05 Last Admin: 06/04/22 19:10 Dose: 300 mg Documented By: PAMELA Gabapentin (Gabapentin 300 Mg Capsule) 300 mg PO NOW ONE Stop: 06/04/22 19:05 Last Admin: 06/04/22 19:10 Dose: Not Given Documented By: PAMELA Vital Signs Vital signs: Vital Signs - 8 hr 06/04/22 15:12 Temperature 97.7 F Pulse Rate 84 Respiratory Rate 16 Blood Pressure 147/94 H Pulse Oximetry 97 Oxygen Delivery Method Room Air MDM - Psych <JODIE Reno - Last Filed: 06/04/22 19:59> Differential Diagnosis Differential diagnosis: Likely suicidal ideation, depression and acute anxiety Lab Data 06/04/22 15:30 06/04/22 15:30 Labs: Lab Results 06/04/22 06/04/22 06/04/22 Range/Units 15:30 15:30 15:30 WBC 8.1 (4.5-11.0) X10^3/uL RBC 4.76 (4.0-5.2) X10^6/uL Hgb 13.2 (12.0-16.0) g/dL Hct 39.1 (36-46) % MCV 82.1 (80-100) fL MCH 27.6 (26-34) PG MCHC 33.7 (30-36) % RDW 15.8 H (11.6-14.8) % Plt Count 250 (150-400) X10^3/uL Neut % (Auto) 55.3 (50-75) % Lymph % (Auto) 34.5 (25-40) % Walker % (Auto) 6.0 (3-14) % Eos % (Auto) 2.9 (2-4) % Baso % (Auto) 1.3 (0-2) % Neut # (Auto) 4500 (3490-4205) /uL Lymph # (Auto) 2800 (0605-5533) /uL Walker # (Auto) 500 (0-900) /uL Eos # (Auto) 200 (0-450) /uL Baso # (Auto) 100 (0-100) /uL Sodium 141 (137-145) mmol/L Potassium 3.4 (3.4-5.1) mmol/L Chloride 109 H (98-107) mmol/L Carbon Dioxide 24 (22-32) mmol/L BUN 9 (7-17) mg/dL Creatinine 0.56 (0.52-1.04) mg/dL Estimated GFR > 60 (>60) mL/min BUN/Creatinine Ratio 16.1 (6-22) Glucose 94 (70-100) mg/dL Calcium 8.8 (8.4-10.2) mg/dL Total Bilirubin 0.4 (0.2-1.3) mg/dL AST 22 (14-36) IU/L ALT 23 (<35) IU/L Alkaline Phosphatase 89 (38-126) U/L Total Protein 7.8 (6.3-8.2) g/dL Albumin 4.3 (3.5-5.0) g/dL Globulin 3.5 (1.7-4.1) g/dL Albumin/Globulin Ratio 1.2 (1.0-2.8) TSH 3.02 (0.47-4.68) uIU/mL Free T4 1.32 (0.78-2.19) ng/dL Urine Color Urine Appearance Urine pH (4.5-8.0) Ur Specific Cardwell (1.000-1.035) Urine Protein (Negative) Urine Glucose (UA) (Negative) g/dL Urine Ketones (NEGATIVE) Urine Occult Blood (Negative) Urine Nitrate (Negative) Urine Bilirubin (NEGATIVE) Urine Urobilinogen (0.2) E.U./dL Ur Leukocyte Esterase (NEGATIVE) Urine RBC (0-5/HPF) Urine WBC (0-5/HPF) Amorphous Sediment Urine Bacteria (None) Ur Culture Indicated? Urine Test (Negative) Salicylates < 1.0 (<20) mg/dL U Opiates 300ng/mL cut (Negative) Ur Oxycodone Screen (Negative) Urine Methadone Screen (Negative) Acetaminophen < 10 (10-30) ug/mL Ur Barbiturates Screen (Negative) U Tricyclic Antidepress (Negative) Ur Phencyclidine Scrn (Negative) Ur Amphetamines Screen (Negative) U Methamphetamines Scrn (Negative) Ur MDMA Scrn (Ecstasy) (Negative) U Benzodiazepines Scrn (Negative) Urine Cocaine Screen (Negative) U Marijuana (THC) Screen (Negative) Ethyl Alcohol < 10 ( - 10) mg/dL SARS-CoV-2 (PCR) (Negative) 06/04/22 06/04/22 06/04/22 Range/Units 15:30 15:30 15:30 WBC (4.5-11.0) X10^3/uL RBC (4.0-5.2) X10^6/uL Hgb (12.0-16.0) g/dL Hct (36-46) % MCV (80-100) fL MCH (26-34) PG MCHC (30-36) % RDW (11.6-14.8) % Plt Count (150-400) X10^3/uL Neut % (Auto) (50-75) % Lymph % (Auto) (25-40) % Walker % (Auto) (3-14) % Eos % (Auto) (2-4) % Baso % (Auto) (0-2) % Neut # (Auto) (8286-5749) /uL Lymph # (Auto) (8231-6042) /uL Walker # (Auto) (0-900) /uL Eos # (Auto) (0-450) /uL Baso # (Auto) (0-100) /uL Sodium (137-145) mmol/L Potassium (3.4-5.1) mmol/L Chloride (98-107) mmol/L Carbon Dioxide (22-32) mmol/L BUN (7-17) mg/dL Creatinine (0.52-1.04) mg/dL Estimated GFR (>60) mL/min BUN/Creatinine Ratio (6-22) Glucose (70-100) mg/dL Calcium (8.4-10.2) mg/dL Total Bilirubin (0.2-1.3) mg/dL AST (14-36) IU/L ALT (<35) IU/L Alkaline Phosphatase (38-126) U/L Total Protein (6.3-8.2) g/dL Albumin (3.5-5.0) g/dL Globulin (1.7-4.1) g/dL Albumin/Globulin Ratio (1.0-2.8) TSH (0.47-4.68) uIU/mL Free T4 (0.78-2.19) ng/dL Urine Color Yellow Urine Appearance Clear Urine pH 7.0 (4.5-8.0) Ur Specific Cardwell 1.010 (1.000-1.035) Urine Protein Negative (Negative) Urine Glucose (UA) Negative (Negative) g/dL Urine Ketones Negative (NEGATIVE) Urine Occult Blood Trace-intact (Negative) Urine Nitrate Negative (Negative) Urine Bilirubin Negative (NEGATIVE) Urine Urobilinogen 0.2 (0.2) E.U./dL Ur Leukocyte Esterase Negative (NEGATIVE) Urine RBC 1-5/hpf (0-5/HPF) Urine WBC None seen (0-5/HPF) Amorphous Sediment 2+ Urine Bacteria Occasional (0-1) (None) Ur Culture Indicated? Specimen cultured Urine Test Negative (Negative) Salicylates (<20) mg/dL U Opiates 300ng/mL cut Negative (Negative) Ur Oxycodone Screen Negative (Negative) Urine Methadone Screen Negative (Negative) Acetaminophen (10-30) ug/mL Ur Barbiturates Screen Positive H (Negative) U Tricyclic Antidepress Negative (Negative) Ur Phencyclidine Scrn Negative (Negative) Ur Amphetamines Screen Positive H (Negative) U Methamphetamines Scrn Negative (Negative) Ur MDMA Scrn (Ecstasy) Negative (Negative) U Benzodiazepines Scrn Negative (Negative) Urine Cocaine Screen Negative (Negative) U Marijuana (THC) Screen Positive H (Negative) Ethyl Alcohol ( - 10) mg/dL SARS-CoV-2 (PCR) (Negative) 06/04/22 Range/Units 15:30 WBC (4.5-11.0) X10^3/uL RBC (4.0-5.2) X10^6/uL Hgb (12.0-16.0) g/dL Hct (36-46) % MCV (80-100) fL MCH (26-34) PG MCHC (30-36) % RDW (11.6-14.8) % Plt Count (150-400) X10^3/uL Neut % (Auto) (50-75) % Lymph % (Auto) (25-40) % Walker % (Auto) (3-14) % Eos % (Auto) (2-4) % Baso % (Auto) (0-2) % Neut # (Auto) (2250-3400) /uL Lymph # (Auto) (2173-4425) /uL Walker # (Auto) (0-900) /uL Eos # (Auto) (0-450) /uL Baso # (Auto) (0-100) /uL Sodium (137-145) mmol/L Potassium (3.4-5.1) mmol/L Chloride (98-107) mmol/L Carbon Dioxide (22-32) mmol/L BUN (7-17) mg/dL Creatinine (0.52-1.04) mg/dL Estimated GFR (>60) mL/min BUN/Creatinine Ratio (6-22) Glucose (70-100) mg/dL Calcium (8.4-10.2) mg/dL Total Bilirubin (0.2-1.3) mg/dL AST (14-36) IU/L ALT (<35) IU/L Alkaline Phosphatase (38-126) U/L Total Protein (6.3-8.2) g/dL Albumin (3.5-5.0) g/dL Globulin (1.7-4.1) g/dL Albumin/Globulin Ratio (1.0-2.8) TSH (0.47-4.68) uIU/mL Free T4 (0.78-2.19) ng/dL Urine Color Urine Appearance Urine pH (4.5-8.0) Ur Specific Cardwell (1.000-1.035) Urine Protein (Negative) Urine Glucose (UA) (Negative) g/dL Urine Ketones (NEGATIVE) Urine Occult Blood (Negative) Urine Nitrate (Negative) Urine Bilirubin (NEGATIVE) Urine Urobilinogen (0.2) E.U./dL Ur Leukocyte Esterase (NEGATIVE) Urine RBC (0-5/HPF) Urine WBC (0-5/HPF) Amorphous Sediment Urine Bacteria (None) Ur Culture Indicated? Urine Test (Negative) Salicylates (<20) mg/dL U Opiates 300ng/mL cut (Negative) Ur Oxycodone Screen (Negative) Urine Methadone Screen (Negative) Acetaminophen (10-30) ug/mL Ur Barbiturates Screen (Negative) U Tricyclic Antidepress (Negative) Ur Phencyclidine Scrn (Negative) Ur Amphetamines Screen (Negative) U Methamphetamines Scrn (Negative) Ur MDMA Scrn (Ecstasy) (Negative) U Benzodiazepines Scrn (Negative) Urine Cocaine Screen (Negative) U Marijuana (THC) Screen (Negative) Ethyl Alcohol ( - 10) mg/dL SARS-CoV-2 (PCR) Negative (Negative) MDM Narrative Medical decision making narrative: 41-year-old female that was brought to the emergency department for suicidal ideation. Assessment was encouraging and patient is agreeable to inpatient treatment. Labs within normal limits. Urine drug screen reveals positive for amphetamine, barbiturates and THC. Patient [place] been [place] [facility] [place] cleared for inpatient admission. <Karo Malone, DO - Last Filed: 06/05/22 13:19> Lab Data Labs: Lab Results 06/04/22 06/04/22 06/04/22 Range/Units 15:30 15:30 15:30 WBC 8.1 (4.5-11.0) X10^3/uL RBC 4.76 (4.0-5.2) X10^6/uL Hgb 13.2 (12.0-16.0) g/dL Hct 39.1 (36-46) % MCV 82.1 (80-100) fL MCH 27.6 (26-34) PG MCHC 33.7 (30-36) % RDW 15.8 H (11.6-14.8) % Plt Count 250 (150-400) X10^3/uL Neut % (Auto) 55.3 (50-75) % Lymph % (Auto) 34.5 (25-40) % Walker % (Auto) 6.0 (3-14) % Eos % (Auto) 2.9 (2-4) % Baso % (Auto) 1.3 (0-2) % Neut # (Auto) 4500 (1146-7244) /uL Lymph # (Auto) 2800 (4706-6136) /uL Walker # (Auto) 500 (0-900) /uL Eos # (Auto) 200 (0-450) /uL Baso # (Auto) 100 (0-100) /uL Sodium 141 (137-145) mmol/L Potassium 3.4 (3.4-5.1) mmol/L Chloride 109 H (98-107) mmol/L Carbon Dioxide 24 (22-32) mmol/L BUN 9 (7-17) mg/dL Creatinine 0.56 (0.52-1.04) mg/dL Estimated GFR > 60 (>60) mL/min BUN/Creatinine Ratio 16.1 (6-22) Glucose 94 (70-100) mg/dL Calcium 8.8 (8.4-10.2) mg/dL Total Bilirubin 0.4 (0.2-1.3) mg/dL AST 22 (14-36) IU/L ALT 23 (<35) IU/L Alkaline Phosphatase 89 (38-126) U/L Total Protein 7.8 (6.3-8.2) g/dL Albumin 4.3 (3.5-5.0) g/dL Globulin 3.5 (1.7-4.1) g/dL Albumin/Globulin Ratio 1.2 (1.0-2.8) TSH 3.02 (0.47-4.68) uIU/mL Free T4 1.32 (0.78-2.19) ng/dL Urine Color Urine Appearance Urine pH (4.5-8.0) Ur Specific Cardwell (1.000-1.035) Urine Protein (Negative) Urine Glucose (UA) (Negative) g/dL Urine Ketones (NEGATIVE) Urine Occult Blood (Negative) Urine Nitrate (Negative) Urine Bilirubin (NEGATIVE) Urine Urobilinogen (0.2) E.U./dL Ur Leukocyte Esterase (NEGATIVE) Urine RBC (0-5/HPF) Urine WBC (0-5/HPF) Amorphous Sediment Urine Bacteria (None) Ur Culture Indicated? Urine Test (Negative) Salicylates < 1.0 (<20) mg/dL U Opiates 300ng/mL cut (Negative) Ur Oxycodone Screen (Negative) Urine Methadone Screen (Negative) Acetaminophen < 10 (10-30) ug/mL Ur Barbiturates Screen (Negative) U Tricyclic Antidepress (Negative) Ur Phencyclidine Scrn (Negative) Ur Amphetamines Screen (Negative) U Methamphetamines Scrn (Negative) Ur MDMA Scrn (Ecstasy) (Negative) U Benzodiazepines Scrn (Negative) Urine Cocaine Screen (Negative) U Marijuana (THC) Screen (Negative) Ethyl Alcohol < 10 ( - 10) mg/dL SARS-CoV-2 (PCR) (Negative) 06/04/22 06/04/22 06/04/22 Range/Units 15:30 15:30 15:30 WBC (4.5-11.0) X10^3/uL RBC (4.0-5.2) X10^6/uL Hgb (12.0-16.0) g/dL Hct (36-46) % MCV (80-100) fL MCH (26-34) PG MCHC (30-36) % RDW (11.6-14.8) % Plt Count (150-400) X10^3/uL Neut % (Auto) (50-75) % Lymph % (Auto) (25-40) % Walker % (Auto) (3-14) % Eos % (Auto) (2-4) % Baso % (Auto) (0-2) % Neut # (Auto) (4062-8006) /uL Lymph # (Auto) (2891-5442) /uL Walker # (Auto) (0-900) /uL Eos # (Auto) (0-450) /uL Baso # (Auto) (0-100) /uL Sodium (137-145) mmol/L Potassium (3.4-5.1) mmol/L Chloride (98-107) mmol/L Carbon Dioxide (22-32) mmol/L BUN (7-17) mg/dL Creatinine (0.52-1.04) mg/dL Estimated GFR (>60) mL/min BUN/Creatinine Ratio (6-22) Glucose (70-100) mg/dL Calcium (8.4-10.2) mg/dL Total Bilirubin (0.2-1.3) mg/dL AST (14-36) IU/L ALT (<35) IU/L Alkaline Phosphatase (38-126) U/L Total Protein (6.3-8.2) g/dL Albumin (3.5-5.0) g/dL Globulin (1.7-4.1) g/dL Albumin/Globulin Ratio (1.0-2.8) TSH (0.47-4.68) uIU/mL Free T4 (0.78-2.19) ng/dL Urine Color Yellow Urine Appearance Clear Urine pH 7.0 (4.5-8.0) Ur Specific Cardwell 1.010 (1.000-1.035) Urine Protein Negative (Negative) Urine Glucose (UA) Negative (Negative) g/dL Urine Ketones Negative (NEGATIVE) Urine Occult Blood Trace-intact (Negative) Urine Nitrate Negative (Negative) Urine Bilirubin Negative (NEGATIVE) Urine Urobilinogen 0.2 (0.2) E.U./dL Ur Leukocyte Esterase Negative (NEGATIVE) Urine RBC 1-5/hpf (0-5/HPF) Urine WBC None seen (0-5/HPF) Amorphous Sediment 2+ Urine Bacteria Occasional (0-1) (None) Ur Culture Indicated? Specimen cultured Urine Test Negative (Negative) Salicylates (<20) mg/dL U Opiates 300ng/mL cut Negative (Negative) Ur Oxycodone Screen Negative (Negative) Urine Methadone Screen Negative (Negative) Acetaminophen (10-30) ug/mL Ur Barbiturates Screen Positive H (Negative) U Tricyclic Antidepress Negative (Negative) Ur Phencyclidine Scrn Negative (Negative) Ur Amphetamines Screen Positive H (Negative) U Methamphetamines Scrn Negative (Negative) Ur MDMA Scrn (Ecstasy) Negative (Negative) U Benzodiazepines Scrn Negative (Negative) Urine Cocaine Screen Negative (Negative) U Marijuana (THC) Screen Positive H (Negative) Ethyl Alcohol ( - 10) mg/dL SARS-CoV-2 (PCR) (Negative) 06/04/22 Range/Units 15:30 WBC (4.5-11.0) X10^3/uL RBC (4.0-5.2) X10^6/uL Hgb (12.0-16.0) g/dL Hct (36-46) % MCV (80-100) fL MCH (26-34) PG MCHC (30-36) % RDW (11.6-14.8) % Plt Count (150-400) X10^3/uL Neut % (Auto) (50-75) % Lymph % (Auto) (25-40) % Walker % (Auto) (3-14) % Eos % (Auto) (2-4) % Baso % (Auto) (0-2) % Neut # (Auto) (7936-7094) /uL Lymph # (Auto) (8749-9430) /uL Walker # (Auto) (0-900) /uL Eos # (Auto) (0-450) /uL Baso # (Auto) (0-100) /uL Sodium (137-145) mmol/L Potassium (3.4-5.1) mmol/L Chloride (98-107) mmol/L Carbon Dioxide (22-32) mmol/L BUN (7-17) mg/dL Creatinine (0.52-1.04) mg/dL Estimated GFR (>60) mL/min BUN/Creatinine Ratio (6-22) Glucose (70-100) mg/dL Calcium (8.4-10.2) mg/dL Total Bilirubin (0.2-1.3) mg/dL AST (14-36) IU/L ALT (<35) IU/L Alkaline Phosphatase (38-126) U/L Total Protein (6.3-8.2) g/dL Albumin (3.5-5.0) g/dL Globulin (1.7-4.1) g/dL Albumin/Globulin Ratio (1.0-2.8) TSH (0.47-4.68) uIU/mL Free T4 (0.78-2.19) ng/dL Urine Color Urine Appearance Urine pH (4.5-8.0) Ur Specific Cardwell (1.000-1.035) Urine Protein (Negative) Urine Glucose (UA) (Negative) g/dL Urine Ketones (NEGATIVE) Urine Occult Blood (Negative) Urine Nitrate (Negative) Urine Bilirubin (NEGATIVE) Urine Urobilinogen (0.2) E.U./dL Ur Leukocyte Esterase (NEGATIVE) Urine RBC (0-5/HPF) Urine WBC (0-5/HPF) Amorphous Sediment Urine Bacteria (None) Ur Culture Indicated? Urine Test (Negative) Salicylates (<20) mg/dL U Opiates 300ng/mL cut (Negative) Ur Oxycodone Screen (Negative) Urine Methadone Screen (Negative) Acetaminophen (10-30) ug/mL Ur Barbiturates Screen (Negative) U Tricyclic Antidepress (Negative) Ur Phencyclidine Scrn (Negative) Ur Amphetamines Screen (Negative) U Methamphetamines Scrn (Negative) Ur MDMA Scrn (Ecstasy) (Negative) U Benzodiazepines Scrn (Negative) Urine Cocaine Screen (Negative) U Marijuana (THC) Screen (Negative) Ethyl Alcohol ( - 10) mg/dL SARS-CoV-2 (PCR) Negative (Negative) Discharge Plan Departure Patient Disposition: Xfer Psychiatric Hosp Clinical Impression: Suicidal ideation Prescriptions: No Action acetaminophen [Tylenol] 325 mg capsule 650 mg PO QID PRN (Reason: pain) Qty: 60 0RF duloxetine 60 mg capsule,delayed release(DR/EC) 60 mg PO DAILY Qty: 90 3RF Rx Instructions: Take 1 tab daily (to take the place of 2-30mg tabs that insurance won't cover). dextroamphetamine-amphetamine 30 mg capsule,extended release 24hr 30 mg PO QAM Qty: 30 0RF Rx Instructions: Take 1 tab (30mg) daily for ADHD uorfvromng-sfjifibysfjud-xreg 50-325-40 mg tablet See Rx Instructions PO .COMPLEX PRN (Reason: pain) Qty: 60 3RF Rx Instructions: Take 1-2 tablets every 6-8 hours as needed for headaches gabapentin 300 mg capsule 300 mg PO TID Qty: 450 3RF Rx Instructions: Take 1 capsule am and afternoon, 3 capsules (900mg) at bedtime daily diclofenac sodium 75 mg tablet,delayed release (DR/EC) 75 mg PO BID PRN (Reason: pain) Qty: 60 1RF Rx Instructions: start after finishing ketoralac. take with food. Multi Vitamin Referrals: Niad Hollingsworth ARNP [Primary Care Provider] - <Karo Malnoe DO - Last Filed: 06/05/22 13:19> Cosign ED Attending Catrina Attestation: I was immediately available in the department for consultation. Documentation h as been reviewed.
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
--- NOTE | 2022-06-04 18:14 | CM.SWNOTE ---
POWER HOUSE CONTROL ROOM OPERATOR Note POWER HOUSE CONTROL ROOM OPERATOR calls [place] intake, it is reported they have dual dx beds and can review patient for [facility]. POWER HOUSE CONTROL ROOM OPERATOR faxes clinicals for review. ED team to f/u with Janelle regarding patient's referral. Plan: continue to seek voluntary inpatient dual dx bed for patient. Tanisha Alexandra, COMMERCIAL REVIEW APPRAISER
[2022-06-04 18:18] LABS: Thyroid Stimulating Hormone 3.02 uIU/mL (0.47-4.68)
[2022-06-04] MEDS: BUTALB/APAP/CAFFEINE 50/325/40 TABLET 2 EACH PO (19:08)
[2022-06-04] MEDS: GABAPENTIN 300 MG CAPSULE PO (19:10)
[2022-06-05 00:19] VITALS: BP 145/94; PULSE 82; RESP 16; TEMP 36.6; O2SAT 97
[2022-06-08 08:36] LABS: Gabapentin 2.2 ug/mL (4.0-16.0)
== END 2022-06-05 00:22 ==
PROVIDERS: Emergency Medicine; Emergency Provider Registered Nurse; PCP Nurse Practitioner
DX: R45.851 Suicidal ideations (principal); Z20.822 Contact with and (suspected) exposure to COVID-19
CPT/HCPCS: 36415; 80053; 80171; 80305; 80320; 80329; 81001; 81025; 84439; 84443; 85025; 87086; 87635; 99284; C9803; G0480